=== PATIENT | male | born 1975 | race Caucasian/White ===

== ENCOUNTER 2025-06-04 10:43 | Emergency (ER) | payer MEDICAID ==
[~2025-06-04] VITALS: Ht 177.8 cm; Wt 85.9 kg
[2025-06-04 10:57] VITALS: BP 159/103; PULSE 88; RESP 16; TEMP 98.6; O2SAT 100
--- NOTE | 2025-06-04 11:04 | Physician Documentation ---
History of Present Illness ~ Stated Complaint: ABCESS TOOTH Time Seen by MD: 11:22 HPI 60-year-old male with a history of the tooth abscess presents with a complaint of developing abscess on the roof of his mouth. He states he does not want to have an I and D and wants to try antibiotics because he almost "kicked the should out of the last person who attempted to drain his abscess". States he has a an appointment to go see his dentist with a an infection. Medication Reconciliation Scheduled Amoxicillin Trihydrate* (Amoxicillin*), 1 CAP PO Q8H Review of Systems All Other Systems at this time: Reviewed and Negative ROS As stated above in the HPI, otherwise all systems are reviewed and negative. Physical Exam Physical Exam General: Alert, no apparent distress. mouth : Notable raised area in the roof patient's mouth in line with the left upper incisor Respiratory: Lungs clear, no respiratory distress. Psychiatric: Normal mood and affect. Skin: Normal color, warm and dry. No edema, no ecchymosis. Progress Results/Orders Results/Orders Vital Signs 06/04/25 10:57 Temp 98.6 Pulse 88 Resp 16 B/P (MAP) 159/103 Pulse Ox 100 Medical Decision Making Findings Patient eloped from lobby Departure Disposition: 01 HOME / SELF CARE / HOMELESS Impression: Primary Impression: Tooth abscess Condition: Stable Discharge Instructions: Dental Caries, Adult Referrals: NO PRIMARY CARE PROVIDER (PCP) Prescriptions Amoxicillin Trihydrate* (Amoxicillin*) 500 Mg Capsule 1 CAP PO Q8H for 10 Days, #30 CAP Prov: ROBBY GARCIA [employer] 06/04/25 Signature Scribe Signature: g Attestation: Scribed for Robby Garcia [employer] by Robby Garcia - FAMILIA . 06/04/25 11:44 ROBBY GARCIA NP Jun 04, 2025 11:04
[2025-06-04] MEDS ORDERED: AMOX500C2 PO (11:24)
[2025-06-05] MEDS ORDERED: IBUP-1986 PO (21:42)
[2025-06-05] MEDS ORDERED: ACET-1025 PO (21:42)
== END 2025-06-04 11:50 | disposition home or self-care (01) ==
LOC: ER 10:44
DX: K04.7 Periapical abscess without sinus (principal)
CPT/HCPCS: 99283

== ENCOUNTER 2025-06-05 21:07 | Emergency (ER) | payer MEDICAID ==
[~2025-06-05] VITALS: Ht 177.8 cm; Wt 80.0 kg
[~2025-06-05 21:07] MED LIST: AMOX500C2 PO
[2025-06-05 21:18] VITALS: BP 154/100; PULSE 79; RESP 16; TEMP 98.2; O2SAT 98
--- NOTE | 2025-06-05 21:37 | Physician Documentation ---
History of Present Illness ~ Chief Complaint: Mouth Pain Stated Complaint: MOUTH PAIN Time Seen by MD: 21:27 HPI Patient is seen today with complaints of dental abscess. Patient states he was seen just recently and was started on amoxicillin however the abscess has not reduced and was throbbing tonight and patient wants it lanced. He has no other concern or complaint at this time. Medication Reconciliation Allergies: Coded Allergies: No Known Allergies (Unverified , 06/05/25) Scheduled Amoxicillin Trihydrate* (Amoxicillin*), 1 CAP PO Q8H Ibuprofen (Ibuprofen), 1 TAB PO Q8H Scheduled PRN Acetaminophen (Tylenol Extra Strength), 2 TAB PO Q6H PRN PRN for pain or fever Review of Systems Constitutional: Denies: chills, fever, weakness Eyes: Denies: pain, blurred vision ENT: Denies: ear pain, nose pain, throat pain, mouth pain Respiratory: Denies: cough, shortness of breath Cardiovascular: Denies: chest pain, palpitations Gastrointestinal: Denies: abdominal pain, nausea, vomiting Genitourinary: Denies: burning, dysuria Male Genitalia: Denies: penile discharge, testicular pain Neurological: Denies: headache, dizziness Musculoskeletal: Denies: pain, swelling Integumentary: Denies: rash, lesions Allergic/Immunologic: Denies: hives, itching Hematologic/Lymphatic: Denies: no symptoms reported Psychiatric: Denies: depression, anxiety Physical Exam Vital Signs: Temperature: 98.2, Source: Temporal, Heart Rate: 79, Respiratory Rate: 16, BP: 154/100, Pulse Oximetry: 98, Weight: 80.000 Oxygen Flow Rate: 0 Physical Exam General: Awake and Alert, no acute distress. HEENT: Patient on exam does have periapical abscess of the left front upper incisor located posteriorly. Conjunctiva pink, Sclera clear, Mucus Membranes moist. Neck: Supple without masses and tenderness. Resp: Unlabored. Lungs clear to auscultation bilaterally. Heart: Regular Rate and rhythm, normal S1 and S2 without murmur, rub or gallop. Extremities: No cyanosis,clubbing or edema. Skin: Warm and Dry. Procedures I&D Procedure : Procedure Note Procedure note: Patient did have periapical abscess lanced using an 11 blade by myself today. Patient tolerated well. Purulent drainage was expressed and sterile gauze used in the applied. Progress Results/Orders Results/Orders Completed Orders - BARRIE POLANCO Ketorolac Trometh 30mg/Ml Vial (Toradol (06/05/25 21:38) Acetaminophen 325mg Tablet (Tylenol Tabl (06/05/25 21:38) Medications Received in ER Medications (Trade) Dose Ordered Sig/[place]oma Route PRN Reason Start Time Stop Time Status Last Admin Dose Admin (Toradol inj. 30mg/ml) 30 mg ONCE STAT IM 06/05/25 21:38 06/05/25 21:53 DC 06/05/25 21:56 30 MG (Tylenol tablet) 975 mg ONCE STAT PO 06/05/25 21:38 06/05/25 21:53 DC 06/05/25 21:56 975 MG Vital Signs 06/05/25 21:18 Temp 98.2 Pulse 79 Resp 16 B/P (MAP) 154/100 Pulse Ox 98 O2 Flow Rate 0 Medical Decision Making Findings Patient is seen today with complaints of dental abscess. Patient states he was seen just recently and was started on amoxicillin however the abscess has not reduced and was throbbing tonight and patient wants it lanced. He has no other concern or complaint at this time. Patient did have periapical abscess lanced by myself today which patient tolerated well. Patient will continue amoxicillin and patient was given Toradol 30 mg IM and Tylenol 975 mg by mouth in the ED tonight. Prescriptions of T ylenol and ibuprofen sent to patient's pharmacy and patient will return to ED with any worsening, concerning or changing symptoms strongly advised to follow up with a dentist. Departure Disposition: HOME / SELF CARE / HOMELESS Impression: Primary Impression: Tooth abscess Condition: Improved Discharge Instructions: Dental Abscess, [id number] Additional Instructions: Patient did have periapical abscess lanced by myself today which patient tolerated well. Patient will continue amoxicillin and patient was given Toradol 30 mg IM and Tylenol 975 mg by mouth in the ED tonight. Prescriptions of Tylenol and ibuprofen sent to patient's pharmacy and patient will return to ED with any worsening, concerning or changing symptoms strongly advised to follow up with a dentist. Referrals: NO PRIMARY CARE PROVIDER (PCP) Prescriptions Acetaminophen (Tylenol Extra Strength) 500 Mg Tablet 2 TAB PO Q6H PRN PRN for pain or fever for 7 Days, #56 TAB Prov: BARRIE POLANCO 06/05/25 Ibuprofen (Ibuprofen) 800 Mg Tablet 1 TAB PO Q8H for pain for 10 Days, #30 TAB 0 Refills Prov: BARRIE POLANCO 06/05/25 Signature Scribe Signature: No scribe Attestation: No scribe BARRIE POLANCO PAC Jun 05, 2025 21:37
[2025-06-05] MEDS ORDERED: ACET-1025 PO (21:42)
[2025-06-05] MEDS ORDERED: IBUP-1986 PO (21:42)
[2025-06-05] MEDS: ketorolac trometh 30MG/ML vial 30 MG/ML VIAL IM STA (21:56)
== END 2025-06-05 22:37 | disposition home or self-care (01) ==
LOC: ER 21:07
DX: K04.7 Periapical abscess without sinus (principal)
CPT/HCPCS: 41800; 96372; 99284; J1885